=== PATIENT | female | born 1975 | race African-American/Black ===

== ENCOUNTER → 2017-10-11 | Outpatient (CLI) | payer BC ==
[2017-10-11 07:56] LABS: CREATINE KINASE 90 IU/L (23-200)
[2017-10-11 07:56] LABS: MAGNESIUM 1.8 mg/dl (1.7-2.5)
[2017-10-11 08:09] LABS: CK INDEX 0.7; CK-MB 0.66 ng/ml (0.0-2.4)
[2017-10-11 08:10] LABS: TROPONIN-I < 0.012 ng/ml (0.00-0.12)
[2017-10-11 08:42] LABS: ERYTHROCYTE SEDIMENTATION RATE 5 mm/Hr (0-20)
[2017-10-12 14:07] LABS: ANA SCREEN NEGATIVE (NEGATIVE)
== END | disposition home or self-care (01) ==
LOC: LAB 07:08
DX: M50.30 Other cervical disc degeneration, unspecified cervical region (principal)
CPT/HCPCS: 82550; 82553; 83735; 84484; 85651; 86038

== ENCOUNTER → 2019-04-17 | Outpatient (CLI) | payer BC ==
[2019-04-17 08:23] LABS: ADD MAN DIFF? NO
[2019-04-17 08:25] LABS: WHITE BLOOD COUNT 4.7 10^3/ul (4.8-10.8)
[2019-04-17 08:25] LABS: BASOPHILS % 0.4 % (0.0-2.0); EOSINOPHILS # 0.1 10^3/ul (0.0-0.5); EOSINOPHILS % 1.1 % (0.0-7.0); HEMATOCRIT 37.9 % (37.0-47.0); HEMOGLOBIN 12.7 g/dl (12.0-16.0); LYMPHOCYTES # 1.5 10^3/ul (0.8-2.9); LYMPHOCYTES % 31.4 % (15.0-51.0); MEAN CORPUSCULAR HEMOGLOBIN 29.2 pg (29.0-33.0); MEAN CORPUSCULAR HGB CONC 33.5 g/dl (32.0-37.0); MEAN CORPUSCULAR VOLUME 87.1 fl (82.0-101.0); MEAN PLATELET VOLUME 10.7 fl (7.4-10.4); MONOCYTE # 0.3 10^3/ul (0.3-0.9); MONOCYTES % 6.2 % (0.0-11.0); NEUTROPHIL # 2.8 10^3/ul (1.6-7.5); NEUTROPHILS % 60.7 % (39.0-77.0); PLATELET COUNT 291 10^3/UL (140-415); RED BLOOD COUNT 4.35 10^6/ul (4.20-5.40); RED CELL DISTRIBUTION WIDTH 12.3 % (11.5-14.5)
[2019-04-17 08:57] LABS: ALANINE AMINOTRANSFERASE 29 IU/L (13-69); ALBUMIN 4.4 g/dl (3.3-4.9); ALBUMIN/GLOBULIN RATIO 1.37; ALKALINE PHOSPHATASE 45 IU/L (42-121); ANION GAP 7 (5-13); ASPARTATE AMINO TRANSFERASE 26 IU/L (15-46); BILIRUBIN,INDIRECT 1.3 mg/dl (0-1.1); BILIRUBIN,TOTAL 1.3 mg/dl (0.2-1.3); BLOOD UREA NITROGEN 14 mg/dl (7-20); CALCIUM 9.2 mg/dl (8.4-10.2); CARBON DIOXIDE 27 mmol/L (21-31); CHLORIDE 104 mmol/L (97-110); CHOL/HDL RATIO 3.1 RATIO; CHOLESTEROL 163 mg/dl (100-200); CREATININE 0.94 mg/dl (0.44-1.00); Estimated GFR > 60 mL/min (>60); GLUCOSE 89 mg/dl (70-220); HDL CHOLESTEROL 52 mg/dl (34-88); LDL CHOLESTEROL,CALCULATED 103 mg/dl; SODIUM 138 mmol/L (135-144); TOTAL PROTEIN 7.6 g/dl (6.1-8.1); TRIGLYCERIDES 38 mg/dl (0-149)
[2019-04-17 10:30] LABS: T4 (THYROXINE) 9.6 ug/dl (5.5-11.0)
[2019-04-17 10:44] LABS: THYROID STIMULATING HORMONE 0.664 MIU/L (0.465-4.680)
== END | disposition home or self-care (01) ==
LOC: LAB 07:56
DX: E78.5 Hyperlipidemia, unspecified (principal); E55.9 Vitamin D deficiency, unspecified; E03.9 Hypothyroidism, unspecified
CPT/HCPCS: 80053; 80061; 82306; 84436; 84443; 85025